=== PATIENT | male | born 1960 | race Caucasian/White ===

== ENCOUNTER 2017-12-03 15:27 | Emergency (ER) | payer OTHER ==
[2017-12-03 15:35] VITALS: BMI 24.4
[2017-12-03] MEDS ORDERED: TORADOL 30 MG VIAL IVP STA (18:38)
--- NOTE | 2017-12-03 18:44 | DR.GENAD ---
HPI - PCP Primary Care Physician: PEARL - Complaint/Symptoms Chief Complaint Doctors Comments: Patient is complaining of RUQ pain and epigastric pain for the past 2 1/2 months off and on with patient unable to sleep at night. States he has had UGI, colonoscopy and evaluations for his stomach but has not had a HIDA scan looking at his gallbladder. states he is a patient of Dr. Kang and a friend referred him here to see Dr. Marmolejo. States the pain is sharp and is getting worst with decreased appetite. States his pain is 8 of 10 and is worst at night. state he has not had a bowel movement in three days. states that he just finished two antibiotics for H. Pylori and he is taking protonix for his stomach. Chief Complaint:: " I THINK MY GALLBLADDER IS BAD. I'M HAVING PAIN IN THE UPPER RIGHT ABD FOR SEVERAL WEEKS." Self Treatment fo Chief Complaint: NONE - Nurses notes reviewed Nurses Notes Review: Yes - Source History Provided: Patient - Mode of Arrival Mode of Arrival: Ambulatory - Timing Onset of Chief Complaint: 10/22/17 Came on: Gradually - Duration Duration: Constant How lon Duration: Weeks - Location Location: RUQ and epigastric pain - Severity Severity: Moderate, Severe - Modifying Factors Worsens:: at night lying down Improves:: nothing PMH - PMH Past Medical History: Yes Past Medical History: GERD Past Surgical History: Yes Past Surgical History Comment: BRAIN SURGERY - Family History History of Family Medical Conditions: No - Social History Does patient currently use any type of tobacco product: Yes Have you used tobacco products in the last 12 months: Yes Type of Tobacco Use: Cigarettes How many years tobacco product used: 30 Does any household member use tobacco: Yes Alcohol Use: None Do you use any recreational Drugs:: No Lives With: Family Lives Where: Home - infectious screening In the last 2 months have you had wt loss of >10#?: NO Have you had fever, night sweats or hemotysis?: No Have you traveled outside the country in the last 6 months?: No Isolation: Standard ROS - Review of Systems Constitutional: No Symptoms Reported Eyes: No Symptoms Reported ENTM: No Symptoms Reported Respiratoy: No Symptoms Reported Cardiovascular: No Symptoms Reported Gastrointestinal/Abdominal: No Symptoms Reported, Abdominal Pain, Constipation. negative: See HPI, Diarrhea, Nausea, Vomiting, Food Intolerance, Other Genitourinary: No Symptoms Reported. negative: See HPI, Discharge, Dysuria, Frequency, Hematuria, Pain, Bleeding, Other Neurological: No Symptoms Reported Musculoskeletal: No Symptoms Reported Integumentary: No Symptoms Reported Hematologic/Lymphatic: No Symptoms Reported. negative: See HPI, Anemia, Blood Clots, Easy Bleeding, Easy Bruising, Swollen Glands, Lymphadenopathy, Other Endocrine: No Symptoms Reported Psychiatric: No Symptoms Reported. negative: See HPI, Anxiety, Depression, Hallucinations, Excessive crying, Suicidal, Other PE - Vital Signs Vitals: Temperature 98.1 F Pulse Rate [Left Brachial] 70 Pulse Rate 78 Respiratory Rate 16 Blood Pressure [Left Arm] 156/77 Blood Pressure 107/69 O2 Sat by Pulse Oximetry 95 - General Limitations: No Limitations General Appearance: Alert, In Distress (severe) - Head Head Exam: Normal Inspection, Atraumatic, Normocephalic - Eyes Eye exam: Normal Appearance, PERRL, EOMI. negative: Scleral Icterus, Conjunctival Injection, Nystagmus, Miosis, Mydrasis, Periorbital Swelling, Periorbital Tenderness, Other - ENT ENT Exam: Normal Exam, Normal Oropharynx, Normal External Ear Exam, Mucous Membranes Moist, TM's Normal Bilaterally External Ear Exam: Normal External Inspection TM/Canal Exam: Bilateral Normal Nose Exam: Normal Nose Exam Mouth Exam: Normal Inspection Throat Exam: Normal Inspection - Neck Neck Exam: Normal Inspection, Full ROM, Trachea Midline - Chest Chest Inspection: Normal Inspection, Symmetric Chest Wall Rise - Respiratory Respiratory Exam: Normal Lung Sounds Bilat Respiratory Exam: Bilateral Clear to Auscultation - Cardiovascular Cardiovascular Exam: Regular Rate, Normal Rhythm, Normal Heart Sounds - Abdominal Exam Abdominal Exam: Normal Inspection, Normal Bowel Sounds, Soft, Tenderness (RUQ and epigastric tenderness) Abdominal Tenderness: RUQ, Epigastrium, Moderate - Extremities Extremities Exam: Normal Inspection, Full ROM, Normal Capillary Refill. negative: Tenderness, Edema, Joint Swelling, Calf Tenderness, Other - Back Back Exam: Normal Inspection, Full ROM. negative: Tenderness, (R) CVA Tenderness, (L) CVA Tenderness, Muscle Spasm, Paraspinal Tenderness, Vertebral Tenderness, Rashes, (R) Sciatic Notch Tenderness, (L) Sciatic Notch Tendern, (R ) Straight Leg Raise, (L) Straight Leg Raise, Other - Neurologic Neurological Exam: Alert, Oriented X3, CN II-XII Intact, Normal Gait, Reflexes Normal - Psychiatric Psychiatric Exam: Normal Affect, Normal Mood - Skin Skin Exam: Warm, Dry, Intact, Normal Color ROR - Labs Reviewed Laboratory Results Reviewed?: Yes (all labs and x-ray results reviewed and discussed with patient.) Result Diagrams: 12/03/17 18:45 12/03/17 18:45 Laboratory: WBC 7.2 X10^3/uL (3.6-10.0) 12/03/17 18:45 RBC 5.08 X10^6/uL (4.7-6.0) 12/03/17 18:45 Hgb 15.0 g/dL (13.5-18.0) 12/03/17 18:45 Hct 43.0 % (42.0-54.0) 12/03/17 18:45 MCV 84.6 fL (80.0-100.0) 12/03/17 18:45 MCH 29.5 pg (27.0-34.0) 12/03/17 18:45 MCHC 34.8 g/dL (33.0-35.0) 12/03/17 18:45 RDW 13.5 % (11.6-16.5) 12/03/17 18:45 Plt Count 249 X10^3/uL (150.0-450.0) 12/03/17 18:45 MPV 8.6 fL (7.4-11.0) 12/03/17 18:45 Neut % (Auto) 60.0 % (42.0-75.0) 12/03/17 18:45 Lymph % (Auto) 26.3 % (21.0-51.0) 12/03/17 18:45 [place] % (Auto) 10.5 % (0.0-13.0) 12/03/17 18:45 Eos % (Auto) 2.3 % (0.9-2.9) 12/03/17 18:45 Baso % (Auto) 0.9 % (0.2-1.0) 12/03/17 18:45 Neut # (Auto) 4.3 x10^3/uL (2.2-4.8) 12/03/17 18:45 Lymph # (Auto) 1.9 X10^3/uL (1.3-2.9) 12/03/17 18:45 [place] # (Auto) 0.8 x10^3/uL (0.3-0.8) 12/03/17 18:45 Eos # (Auto) 0.2 x10^3/uL (0.0-0.2) 12/03/17 18:45 Baso # (Auto) 0.1 X10^3/uL (0.0-0.1) 12/03/17 18:45 Absolute Nucleated RBC 0.0 /100WBC 12/03/17 18:45 Sodium 138 mmol/L (136-145) 12/03/17 18:45 Corrected Sodium TNP 12/03/17 18:45 Potassium 3.7 mmol/L (3.5-5.1) 12/03/17 18:45 Chloride 102 mmol/L (98-107) 12/03/17 18:45 Carbon Dioxide 24.9 mmol/L (21-32) 12/03/17 18:45 BUN 11 mg/dL (7-18) 12/03/17 18:45 Creatinine 0.89 mg/dL (0.70-1.30) 12/03/17 18:45 Est GFR (MDRD) Af Amer > 60 (>60) 12/03/17 18:45 Est GFR (MDRD) Non-Af > 60 (>60) 12/03/17 18:45 Glucose 90 mg/dL (65-99) 12/03/17 18:45 Calcium 8.7 mg/dL (8.5-10.1) 12/03/17 18:45 Corrected Calcium TNP 12/03/17 18:45 Total Bilirubin 0.40 mg/dL (0.2-1.0) 12/03/17 18:45 AST 79 Units/L (15-37) H 12/03/17 18:45 ALT 29 Units/L (12-78) 12/03/17 18:45 Alkaline Phosphatase 136 Units/L (46-116) H 12/03/17 18:45 Creatine Kinase 160 Units/L (39-308) 12/03/17 18:45 CK-MB (CK-2) < 1.0 ng/mL (0-4.0) 12/03/17 18:45 CK/CKMB % Calc 0.6 % (<4) 12/03/17 18:45 Troponin I < 0.02 ng/mL (0-1.5) 12/03/17 18:45 Total Protein 7.9 g/dL (6.4-8.2) 12/03/17 18:45 Albumin 3.7 g/dL (3.4-5.0) 12/03/17 18:45 Globulin 4.2 g/dL (2.5-4.5) 12/03/17 18:45 Albumin/Globulin Ratio 0.9 Ratio (1.1-2.1) L 12/03/17 18:45 Amylase 54 Units/L (25-115) 12/03/17 18:45 Lipase 324 Units/L (73-393) 12/03/17 18:45 H. pylori IgG Antibody Positive (NEGATIVE) A 12/03/17 18:45 - XRAY XRAY Interpreted by: Radiologist (CT abdomen: Mild sigmoid diverticulosis.) XRAY Findings: CXR: No acute cardiopulmonary changes noted - EKG Rate: 69 [place]: Normal Rhythm: NSR Block: None Hypertrophy: None ST: Normal - Diagnosis Discharge Problem: Abdominal pain, RUQ, Helicobacter positive gastritis, Diverticulosis of colon Chest pain Qualifiers: Chest pain type: other chest pain Qualified Code(s): R07.89 - Other chest pain ; R07.8 - Other chest pain - Discharge Plan Disposition: 01 HOME, SELF-CARE Condition: Stable - Follow ups/Referrals Follow ups/Referrals: EROS KANG [Primary Care Provider] - 3 days - Instructions Instructions: Gastritis, Adult, [id number], Helicobacter Pylori Infection, Diverticulosis
[2017-12-03 18:54] LABS: BASOPHILS # (AUTO) 0.1 X10^3/uL (0.0-0.1); BASOPHILS % (AUTO) 0.9 % (0.2-1.0); EOSINOPHILS # (AUTO) 0.2 x10^3/uL (0.0-0.2); EOSINOPHILS % (AUTO) 2.3 % (0.9-2.9); LYMPHOCYTES # (AUTO) 1.9 X10^3/uL (1.3-2.9); LYMPHOCYTES % (AUTO) 26.3 % (21.0-51.0); MEAN CORPUSCULAR HEMOGLOBIN 29.5 pg (27.0-34.0); MEAN CORPUSCULAR HGB CONC 34.8 g/dL (33.0-35.0); MEAN CORPUSCULAR VOLUME 84.6 fL (80.0-100.0); MEAN PLATELET VOLUME 8.6 fL (7.4-11.0); MONOCYTES # (AUTO) 0.8 x10^3/uL (0.3-0.8); MONOCYTES % (AUTO) 10.5 % (0.0-13.0); NEUTROPHILS # (AUTO) 4.3 x10^3/uL (2.2-4.8); PLATELET COUNT 249 X10^3/uL (150.0-450.0); RED BLOOD COUNT 5.08 X10^6/uL (4.7-6.0); RED CELL DISTRIBUTION WIDTH 13.5 % (11.6-16.5); WHITE BLOOD COUNT 7.2 X10^3/uL (3.6-10.0)
[2017-12-03] MEDS ORDERED: NS 1000 ML 1,000 ML ONE (18:54)
[2017-12-03] MEDS ORDERED: TORADOL 30 MG VIAL ONE (18:55)
[2017-12-03] MEDS ORDERED: NS 1000 ML 1,000 ML IV SCH (19:00)
[2017-12-03 19:08] LABS: ALANINE AMINOTRANSFERASE 29 Units/L (12-78); ALBUMIN 3.7 g/dL (3.4-5.0); ALKALINE PHOSPHATASE 136 Units/L (46-116); AMYLASE 54 Units/L (25-115); ASPARTATE AMINO TRANSFERASE 79 Units/L (15-37); BLOOD UREA NITROGEN 11 mg/dL (7-18); CALCIUM 8.7 mg/dL (8.5-10.1); CARBON DIOXIDE 24.9 mmol/L (21-32); CHLORIDE 102 mmol/L (98-107); CREATININE 0.89 mg/dL (0.70-1.30); LIPASE 324 Units/L (73-393); SODIUM 138 mmol/L (136-145); TOTAL PROTEIN 7.9 g/dL (6.4-8.2); eGFR BLACK RACES > 60 (>60); eGFR NON BLACK RACES > 60 (>60)
[2017-12-03 19:23] LABS: CREATINE KINASE 160 Units/L (39-308); CREATINE KINASE MB < 1.0 ng/mL (0-4.0); TROPONIN I < 0.02 ng/mL (0-1.5)
[2017-12-03 19:27] LABS: CKMB % 0.6 % (<4)
--- NOTE | 2017-12-03 19:32 | CT ---
HISTORY: Right upper quadrant pain for weeks Study: CT abdomen and pelvis without contrast Comparison: None Technique: Multiple axial images of the abdomen and pelvis were obtained from the lung bases to the pubic symphy sis after/ without/ both prior to and after the administration of IV contrast. Findings: The visualized portions of the lung bases are unremarkable. The liver, spleen, pancreas, kidneys, an d adrenal glands are unremarkable in their noncontrast CT appearance. The gallbladder is unremarkable in its CT appearance. No significant mesenteric lymphadenopathy or stranding can be observed. No f ree fluid or free air is seen within the abdomen. No bowel wall thickening or bowel dilatation is pr esent. The colon demonstrates mild sigmoid diverticulosis without evidence for diverticulitis. The a ppendix is normal.. The urinary bladder is grossly unremarkable. The bony structures are grossly int act. IMPRESSION: 1. Mild sigmoid diverticulosis. Reported By:
[2017-12-03 21:01] VITALS: BP 156/77
== END 2017-12-03 21:55 | disposition home or self-care (01) ==
LOC: ER 15:47
DX: R10.11 Right upper quadrant pain (principal); B96.81 Helicobacter pylori [H. pylori] as the cause of diseases classified elsewhere; K57.30 Diverticulosis of large intestine without perforation or abscess without bleeding; R07.89 Other chest pain
CPT/HCPCS: 36415; 74176; 80053; 82150; 82550; 82553; 83690; 84484; 85025; 86677; 93005; 93010; 96365; 96367; 96374; 99283; A4216; A4222; J1885